=== PATIENT | male | born 1950 | race Caucasian/White ===

== ENCOUNTER 2018-05-20 17:36 | Inpatient (IN) ==
[2018-05-20 18:50] LABS: Basophils # 0.1 10*3/uL (0.0-0.2); Basophils % 0.7 % (0.0-0.8); Eosinophils % 0.1 % (0.00-10.9); Hematocrit 46.4 VOL% (42.0-52.0); Immature Granulocytes Absolute 0.74 #; Lymphocytes # 0.6 10*3/uL (1.4-4.0); Lymphocytes % 8.4 % (21.2-54.2); Mean Corpuscular HGB Conc 32.3 GM/DL (32-36); Mean Corpuscular Hemoglobin 29 PG (27-34); Mean Platelet Volume 9.7 FL (9.6-12.0); Monocytes # 0.6 10*3/uL (0.11-0.8); Monocytes % 8.5 % (1.7-12.7); Neutrophils # 5.3 10*3/uL (1.4-7.4); Neutrophils % 72.3 % (38.7-73.9); Platelet Count 256 T/CUMM (130-400); Red Cell Distribution Width 13.3 % (9.3-17.3); White Blood Count 7.4 T/CUMM (4-12)
[2018-05-20 19:04] LABS: Troponin I < 0.015 NG/ML (0.00-0.045)
[2018-05-20 19:38] LABS: Blood Urea Nitrogen 13 MG/DL (7-18); Lymphocytes 6 % (20-55); Platelet Estimate Normal; Segmented Neutrophils 89 % (50-85); Total Cells Counted 100
[2018-05-20 19:39] LABS: Polychromasia Few
[2018-05-20 20:29] LABS: Alanine Aminotransferase 18 U/L (16-61); Albumin 3.4 G/DL (3.4-5.0); Alkaline Phosphatase 69 U/L (45-117); Aspartate Amino Transferase 24 U/L (0-37); Glucose 78 MG/DL (74-106); Osmolality,Calculated 277.4 MOS/KG (273-304); Potassium 3.9 MMOL/L (3.5-5.1); Sodium 140 MMOL/L (136-145); Total Protein 6.3 G/DL (6.4-8.3)
[2018-05-20 20:31] LABS: Calcium < 5.0 MG/DL (8.5-10.1)
[2018-05-21 05:54] LABS: Albumin 3.2 G/DL (3.4-5.0); Bilirubin,Total 1.8 MG/DL (0.2-1.0); Calcium 5.9 MG/DL (8.5-10.1); Osmolality,Calculated 281.1 MOS/KG (273-304); Potassium 3.4 MMOL/L (3.5-5.1); Total Protein 6.1 G/DL (6.4-8.3)
[2018-05-21 10:26] LABS: Apearance,Urine CLEAR (Clear); Bilirubin,Urine Negative (Negative); Blood, Urine Small mg/dL (Negative); Glucose,Urine (UA) Negative (Negative); Ketones,Urine 5 mg/dL (Negative); Nitrite,Urine Negative (Negative); Protein,Urine Negative; RBC,Urine <1 /HPF (0-4); Squamous Epithelial Cell,Urine Occasional /HPF (0-10); Urine Color Yellow (Yellow); Urine Specific Gravity 1.011 (1.001-1.035); Urine Urobilinogen < 2.0 EU/DL (0.2-1.0); WBC,Urine <1 /HPF (0-6)
[2018-05-21 16:47] LABS: Calcium 5.6 MG/DL (8.5-10.1)
[2018-05-22 06:43] LABS: Basophils % 0.8 % (0.0-0.8); Eosinophils # 0.1 10*3/uL (0.0-0.87); Hematocrit 44.7 VOL% (42.0-52.0); Hemoglobin 14.6 GM/DL (14.0-18.0); Immature Granulocytes % 10.2 %; Immature Granulocytes Absolute 0.53 #; Lymphocytes # 0.8 10*3/uL (1.4-4.0); Lymphocytes % 15.9 % (21.2-54.2); Mean Corpuscular HGB Conc 32.7 GM/DL (32-36); Mean Corpuscular Hemoglobin 30 PG (27-34); Mean Corpuscular Volume 90.5 FL (87-102); Mean Platelet Volume 9.7 FL (9.6-12.0); Monocytes # 0.7 10*3/uL (0.11-0.8); Monocytes % 12.8 % (1.7-12.7); Neutrophils # 3.1 10*3/uL (1.4-7.4); Neutrophils % 59.3 % (38.7-73.9); Platelet Count 218 T/CUMM (130-400); Red Blood Count 4.94 MC/CUMM (3.8-5.5); Red Cell Distribution Width 13.2 % (9.3-17.3); White Blood Count 5.2 T/CUMM (4-12)
[2018-05-22 07:07] LABS: Band Neutrophils 1 % (0-10); Eosinophils 3 % (0-10); Hypochromasia 1+; Lymphocytes 18 % (20-55); Ovalocytes Slight; Platelet Estimate Adequate; Segmented Neutrophils 66 % (50-85); Total Cells Counted 100
[2018-05-22 07:22] LABS: Calcium 6.3 MG/DL (8.5-10.1); Osmolality,Calculated 286.8 MOS/KG (273-304); Potassium 3.7 MMOL/L (3.5-5.1)
[2018-05-22 07:38] VITALS: BP 149/87
== END 2018-05-22 09:12 | disposition home or self-care (01) | DRG 641 ==
LOC: N.EDINP 17:36 → N.ED 17:36 → N.5E 22:00
PROVIDERS: ADMIT Internal Medicine; ATTEND Internal Medicine

== ENCOUNTER 2020-07-01 12:19 | Inpatient (IN) ==
[2020-07-01] MEDS ORDERED: ALBUTEROL/IPRATROPIUM 3 ML NEB RESP TX PRN (12:45)
[2020-07-01] MEDS: ALBUTEROL/IPRATROPIUM 3 ML NEB RESP TX SCH ×2 (13:45→19:53)
[2020-07-01] MEDS: CEFEPIME 1,000 MG in SODIUM CHLORIDE 0.9% 100 ML IV SCH ×2 (16:00→21:31)
[2020-07-01] MEDS: DOCUSATE SODIUM 100 MG/10 ML UDCUP PEG SCH (21:29)
[2020-07-01] MEDS: TACROLIMUS 0.5 MG CAPSULE PEG SCH (21:29)
[2020-07-01] MEDS: FERROUS SULFATE 300 MG/5 ML UDCUP PEG SCH (21:29)
[2020-07-01] MEDS: CALCIUM (CARBONATE) 600 MG TABLET PEG SCH (21:29)
[2020-07-01] MEDS: ATORVASTATIN 20 MG TABLET PEG SCH (21:30)
[2020-07-01] MEDS: ASCORBIC ACID 500 MG TABLET PEG SCH (21:30)
[2020-07-01] MEDS: busPIRone 5 MG TABLET PEG SCH (21:30)
[2020-07-02] MEDS: ALBUTEROL/IPRATROPIUM 3 ML NEB RESP TX SCH ×4 (02:33→19:10)
[2020-07-02] MEDS: CEFEPIME 1,000 MG in SODIUM CHLORIDE 0.9% 100 ML IV SCH ×4 (02:44→20:21)
[2020-07-02 05:43] LABS: Basophils % 0.2 % (0.0-0.8); Eosinophils # 0.1 10*3/uL (0.0-0.87); Eosinophils % 0.9 % (0.00-10.9); Hematocrit 34.9 VOL% (42.0-52.0); Hemoglobin 10.9 GM/DL (14.0-18.0); Immature Granulocytes % 0.4 %; Immature Granulocytes Absolute 0.04 #; Lymphocytes # 0.5 10*3/uL (1.4-4.0); Lymphocytes % 5.9 % (21.2-54.2); Mean Corpuscular HGB Conc 31.2 GM/DL (32-36); Mean Corpuscular Volume 85.7 FL (87-102); Mean Platelet Volume 9.6 FL (9.6-12.0); Monocytes % 11.6 % (1.7-12.7); Platelet Count 259 T/CUMM (130-400); Red Blood Count 4.07 MC/CUMM (3.8-5.5); Red Cell Distribution Width 15.3 % (9.3-17.3)
[2020-07-02 06:03] LABS: Calcium 8.3 MG/DL (8.5-10.1); Osmolality,Calculated 279.7 MOS/KG (273-304)
[2020-07-02] MEDS ORDERED: LANSOPRAZOLE ODT 30 MG TABLET PEG SCH (06:30)
[2020-07-02] MEDS ORDERED: PANTOPRAZOLE 40 MG TABLET PO SCH (09:00)
[2020-07-02] MEDS ORDERED: FUROSEMIDE 40 MG/4 ML VIAL IV ONE (09:00)
[2020-07-02] MEDS: ACETAMINOPHEN 325 MG/10.15 ML UDCUP PEG PRN (09:08)
[2020-07-02] MEDS: POTASSIUM CHLORIDE 20 MEQ/15 ML UDCUP PEG SCH (09:13)
[2020-07-02] MEDS: DOCUSATE SODIUM 100 MG/10 ML UDCUP PEG SCH ×2 (09:13→20:20)
[2020-07-02] MEDS: FERROUS SULFATE 300 MG/5 ML UDCUP PEG SCH ×2 (09:13→20:20)
[2020-07-02] MEDS: POTASSIUM CHLORIDE 20 MEQ/15 ML UDCUP PER TUBE PRN ×3 (09:13→16:56)
[2020-07-02] MEDS: SULFAMETHOX/TRIMETHOPRIM 200-40 MG/5 ML -20 ML UDCUP PEG SCH (09:13)
[2020-07-02] MEDS: prednisoLONE 15 MG/5 ML ORAL.SYR PEG SCH (09:14)
[2020-07-02] MEDS: LEFLUNOMIDE 10 MG TABLET PEG SCH (09:15)
[2020-07-02] MEDS: OMEPRAZOLE ODT 20 MG TABLET PEG SCH (09:15)
[2020-07-02] MEDS: TACROLIMUS 0.5 MG CAPSULE PEG SCH ×2 (09:15→20:20)
[2020-07-02] MEDS: CALCIUM (CARBONATE) 600 MG TABLET PEG SCH ×3 (09:16→20:20)
[2020-07-02] MEDS: CITALOPRAM 40 MG TABLET PEG SCH ×2 (09:16→10:37)
[2020-07-02] MEDS: busPIRone 5 MG TABLET PEG SCH ×3 (09:16→20:20)
[2020-07-02] MEDS: amLODIPine 2.5 MG TABLET PEG SCH (09:16)
[2020-07-02] MEDS: METOPROLOL SUCCINATE XL 25 MG TABLET PO SCH (09:16)
[2020-07-02] MEDS: ENOXAPARIN 40 MG/0.4 ML SYRINGE SUBCUT SCH (09:17)
[2020-07-02] MEDS: methylPREDNISolone SOD SUC 40 MG/1 ML VIAL IV SCH ×2 (09:17→20:20)
[2020-07-02] MEDS: ASCORBIC ACID 500 MG TABLET PEG SCH ×2 (09:17→20:20)
[2020-07-02] MEDS: AZITHROMYCIN INJ 500 MG in SODIUM CHLORIDE 0.9% 250 ML IV SCH (17:58)
[2020-07-02] MEDS: metroNIDAZOLE INJ 500 MG in PREMIX 1 EACH IV SCH ×2 (19:01→23:26)
[2020-07-02] MEDS: ATORVASTATIN 20 MG TABLET PEG SCH (20:20)
[2020-07-03] MEDS: ALBUTEROL/IPRATROPIUM 3 ML NEB RESP TX SCH ×4 (01:05→19:42)
[2020-07-03] MEDS: CEFEPIME 1,000 MG in SODIUM CHLORIDE 0.9% 100 ML IV SCH ×4 (02:34→22:15)
[2020-07-03] MEDS: metroNIDAZOLE INJ 500 MG in PREMIX 1 EACH IV SCH ×3 (05:21→18:13)
[2020-07-03] MEDS: OMEPRAZOLE ODT 20 MG TABLET PEG SCH (05:33)
[2020-07-03 06:09] LABS: Basophils % 0.1 % (0.0-0.8); Hematocrit 34.3 VOL% (42.0-52.0); Immature Granulocytes % 0.4 %; Immature Granulocytes Absolute 0.04 #; Lymphocytes # 0.3 10*3/uL (1.4-4.0); Lymphocytes % 2.2 % (21.2-54.2); Mean Corpuscular HGB Conc 32.1 GM/DL (32-36); Mean Corpuscular Volume 84.5 FL (87-102); Mean Platelet Volume 9.8 FL (9.6-12.0); Monocytes % 6.5 % (1.7-12.7); Neutrophils % 90.8 % (38.7-73.9); Platelet Count 283 T/CUMM (130-400); Red Blood Count 4.06 MC/CUMM (3.8-5.5); Red Cell Distribution Width 15.2 % (9.3-17.3); White Blood Count 11.3 T/CUMM (4-12)
[2020-07-03 06:25] LABS: Calcium 8.4 MG/DL (8.5-10.1); Osmolality,Calculated 284.8 MOS/KG (273-304)
[2020-07-03 08:02] LABS: Band Neutrophils 2 % (0-10); Lymphocytes 3 % (20-55); Metamyelocytes 1 %; Platelet Estimate Normal; Segmented Neutrophils 89 % (50-85); Total Cells Counted 100
[2020-07-03 08:03] LABS: Anisocytosis Slight; Microcytosis Slight
[2020-07-03] MEDS: ACETAMINOPHEN 325 MG/10.15 ML UDCUP PEG PRN ×2 (09:20→15:16)
[2020-07-03] MEDS: methylPREDNISolone SOD SUC 40 MG/1 ML VIAL IV SCH (09:21)
[2020-07-03] MEDS: ENOXAPARIN 40 MG/0.4 ML SYRINGE SUBCUT SCH (09:22)
[2020-07-03] MEDS: amLODIPine 2.5 MG TABLET PEG SCH (12:31)
[2020-07-03] MEDS: METOPROLOL SUCCINATE XL 25 MG TABLET PO SCH (12:31)
[2020-07-03 14:40] LABS: Amylase,Pleural Fluid 17 U/L; Glucose,Pleural Fluid 112 MG/DL; LDH,Pleural Fluid 315 U/L; Total Protein,Pleural Fluid 3.8 G/DL
[2020-07-03 14:51] LABS: Eosinophils,Pleural Fluid 1 %; Lymphocytes,Pleural Fluid 6 %; Monocytes,Pleural Fluid 20 %; Neutrophils,Pleural Fluid 73 %
[2020-07-03 14:52] LABS: RBC,Pleural Fluid 826 T/CUMM
[2020-07-03] MEDS: busPIRone 5 MG TABLET PEG SCH ×3 (15:10→22:15)
[2020-07-03] MEDS: CALCIUM (CARBONATE) 600 MG TABLET PEG SCH ×3 (15:11→22:16)
[2020-07-03] MEDS: ASCORBIC ACID 500 MG TABLET PEG SCH ×2 (15:15→22:15)
[2020-07-03] MEDS: TACROLIMUS 0.5 MG CAPSULE PEG SCH ×2 (15:15→22:15)
[2020-07-03] MEDS: LEFLUNOMIDE 10 MG TABLET PEG SCH (15:15)
[2020-07-03] MEDS: FERROUS SULFATE 300 MG/5 ML UDCUP PEG SCH ×2 (15:16→22:16)
[2020-07-03] MEDS: CITALOPRAM 40 MG TABLET PEG SCH (15:16)
[2020-07-03] MEDS: POTASSIUM CHLORIDE 20 MEQ/15 ML UDCUP PEG SCH (15:17)
[2020-07-03] MEDS: DOCUSATE SODIUM 100 MG/10 ML UDCUP PEG SCH ×2 (15:17→22:16)
[2020-07-03] MEDS: POTASSIUM CHLORIDE 20 MEQ/15 ML UDCUP PER TUBE PRN (15:17)
[2020-07-03] MEDS: SULFAMETHOX/TRIMETHOPRIM 200-40 MG/5 ML -20 ML UDCUP PEG SCH (15:18)
[2020-07-03] MEDS: prednisoLONE 15 MG/5 ML ORAL.SYR PEG SCH (15:18)
[2020-07-03 15:58] LABS: Alanine Aminotransferase 14 U/L (16-61); Albumin 2.1 G/DL (3.4-5.0); Alkaline Phosphatase 79 U/L (45-117); Aspartate Amino Transferase 17 U/L (0-37); Bilirubin,Total < 0.39 MG/DL (0.2-1.0); Blood Urea Nitrogen 30 MG/DL (7-18); Calcium 8.5 MG/DL (8.5-10.1); Estimated Glom Filtration Rate 104 ML/MIN; Glucose 128 MG/DL (74-106); Osmolality,Calculated 280.8 MOS/KG (273-304); Total Protein 6.3 G/DL (6.4-8.3)
[2020-07-03] MEDS: AZITHROMYCIN INJ 500 MG in SODIUM CHLORIDE 0.9% 250 ML IV SCH (17:02)
[2020-07-03] MEDS: ATORVASTATIN 20 MG TABLET PEG SCH (22:16)
[2020-07-03] MEDS: ONDANSETRON 4 MG/2 ML VIAL IV PRN (22:16)
[2020-07-04] MEDS: ALBUTEROL/IPRATROPIUM 3 ML NEB RESP TX SCH ×4 (00:35→19:23)
[2020-07-04] MEDS: metroNIDAZOLE INJ 500 MG in PREMIX 1 EACH IV SCH ×4 (01:04→17:20)
[2020-07-04] MEDS: CEFEPIME 1,000 MG in SODIUM CHLORIDE 0.9% 100 ML IV SCH ×4 (03:48→20:48)
[2020-07-04 05:24] LABS: Basophils % 0.1 % (0.0-0.8); Eosinophils % 0.1 % (0.00-10.9); Hematocrit 32.7 VOL% (42.0-52.0); Hemoglobin 10.2 GM/DL (14.0-18.0); Immature Granulocytes % 0.6 %; Immature Granulocytes Absolute 0.07 #; Lymphocytes # 0.4 10*3/uL (1.4-4.0); Lymphocytes % 3.4 % (21.2-54.2); Mean Corpuscular HGB Conc 31.2 GM/DL (32-36); Mean Corpuscular Volume 85.4 FL (87-102); Mean Platelet Volume 9.1 FL (9.6-12.0); Monocytes % 10.9 % (1.7-12.7); Neutrophils % 84.9 % (38.7-73.9); Platelet Count 260 T/CUMM (130-400); Red Blood Count 3.83 MC/CUMM (3.8-5.5); Red Cell Distribution Width 15.3 % (9.3-17.3); White Blood Count 12.1 T/CUMM (4-12)
[2020-07-04 05:38] LABS: Calcium 8.4 MG/DL (8.5-10.1); Osmolality,Calculated 281.5 MOS/KG (273-304)
[2020-07-04] MEDS: OMEPRAZOLE ODT 20 MG TABLET PEG SCH (06:02)
[2020-07-04 06:11] LABS: Band Neutrophils 2 % (0-10); Eosinophils 1 % (0-10); Lymphocytes 1 % (20-55); Nucleated Red Blood Cells 1 (0-5); Platelet Estimate Normal; Segmented Neutrophils 87 % (50-85); Total Cells Counted 100
[2020-07-04 06:12] LABS: Anisocytosis 2+; Burr Cells Few; Ovalocytes 1+; Poikilocytosis 1+
[2020-07-04] MEDS: CALCIUM (CARBONATE) 600 MG TABLET PEG SCH ×3 (09:46→20:47)
[2020-07-04] MEDS: FERROUS SULFATE 300 MG/5 ML UDCUP PEG SCH ×2 (09:46→20:46)
[2020-07-04] MEDS: prednisoLONE 15 MG/5 ML ORAL.SYR PEG SCH (09:46)
[2020-07-04] MEDS: busPIRone 5 MG TABLET PEG SCH ×3 (09:46→20:46)
[2020-07-04] MEDS: LEFLUNOMIDE 10 MG TABLET PEG SCH (09:46)
[2020-07-04] MEDS: DOCUSATE SODIUM 100 MG/10 ML UDCUP PEG SCH ×2 (09:46→20:48)
[2020-07-04] MEDS: POTASSIUM CHLORIDE 20 MEQ/15 ML UDCUP PEG SCH (09:46)
[2020-07-04] MEDS: ASCORBIC ACID 500 MG TABLET PEG SCH ×2 (09:47→20:48)
[2020-07-04] MEDS: amLODIPine 2.5 MG TABLET PEG SCH (09:47)
[2020-07-04] MEDS: TACROLIMUS 0.5 MG CAPSULE PEG SCH ×2 (09:47→20:46)
[2020-07-04] MEDS: SULFAMETHOX/TRIMETHOPRIM 200-40 MG/5 ML -20 ML UDCUP PEG SCH (09:47)
[2020-07-04] MEDS: METOPROLOL SUCCINATE XL 25 MG TABLET PO SCH (09:47)
[2020-07-04] MEDS: CITALOPRAM 40 MG TABLET PEG SCH (09:47)
[2020-07-04] MEDS: ENOXAPARIN 40 MG/0.4 ML SYRINGE SUBCUT SCH (09:48)
[2020-07-04] MEDS: ONDANSETRON 4 MG/2 ML VIAL IV PRN (10:04)
[2020-07-04] MEDS: AZITHROMYCIN INJ 500 MG in SODIUM CHLORIDE 0.9% 250 ML IV SCH (16:06)
[2020-07-04] MEDS: ATORVASTATIN 20 MG TABLET PEG SCH (20:47)
[2020-07-05] MEDS: ALBUTEROL/IPRATROPIUM 3 ML NEB RESP TX SCH ×4 (00:12→19:18)
[2020-07-05] MEDS: metroNIDAZOLE INJ 500 MG in PREMIX 1 EACH IV SCH ×4 (00:48→18:26)
[2020-07-05] MEDS: CEFEPIME 1,000 MG in SODIUM CHLORIDE 0.9% 100 ML IV SCH ×4 (04:53→21:20)
[2020-07-05] MEDS: OMEPRAZOLE ODT 20 MG TABLET PEG SCH (05:40)
[2020-07-05] MEDS: LEFLUNOMIDE 10 MG TABLET PEG SCH (09:55)
[2020-07-05] MEDS: busPIRone 5 MG TABLET PEG SCH ×3 (09:55→21:32)
[2020-07-05] MEDS: POTASSIUM CHLORIDE 20 MEQ/15 ML UDCUP PEG SCH (09:55)
[2020-07-05] MEDS: amLODIPine 2.5 MG TABLET PEG SCH (09:55)
[2020-07-05] MEDS: prednisoLONE 15 MG/5 ML ORAL.SYR PEG SCH (09:56)
[2020-07-05] MEDS: DOCUSATE SODIUM 100 MG/10 ML UDCUP PEG SCH ×2 (09:56→21:01)
[2020-07-05] MEDS: CALCIUM (CARBONATE) 600 MG TABLET PEG SCH ×3 (09:56→21:21)
[2020-07-05] MEDS: METOPROLOL SUCCINATE XL 25 MG TABLET PO SCH (09:57)
[2020-07-05] MEDS: TACROLIMUS 0.5 MG CAPSULE PEG SCH ×2 (09:57→21:16)
[2020-07-05] MEDS: CITALOPRAM 40 MG TABLET PEG SCH (09:57)
[2020-07-05] MEDS: FERROUS SULFATE 300 MG/5 ML UDCUP PEG SCH ×2 (09:57→21:16)
[2020-07-05] MEDS: SULFAMETHOX/TRIMETHOPRIM 200-40 MG/5 ML -20 ML UDCUP PEG SCH (09:58)
[2020-07-05] MEDS: ENOXAPARIN 40 MG/0.4 ML SYRINGE SUBCUT SCH (09:58)
[2020-07-05] MEDS: ASCORBIC ACID 500 MG TABLET PEG SCH ×2 (09:58→21:18)
[2020-07-05] MEDS: LOPERAMIDE 2 MG CAPSULE PO SCH (21:16)
[2020-07-05] MEDS: ATORVASTATIN 20 MG TABLET PEG SCH (21:19)
[2020-07-06] MEDS: metroNIDAZOLE INJ 500 MG in PREMIX 1 EACH IV SCH ×4 (01:23→18:15)
[2020-07-06] MEDS: ALBUTEROL/IPRATROPIUM 3 ML NEB RESP TX SCH ×4 (02:02→19:34)
[2020-07-06] MEDS: CEFEPIME 1,000 MG in SODIUM CHLORIDE 0.9% 100 ML IV SCH ×4 (03:16→21:40)
[2020-07-06 03:34] LABS: Basophils % 0.2 % (0.0-0.8); Eosinophils # 0.2 10*3/uL (0.0-0.87); Eosinophils % 1.6 % (0.00-10.9); Hematocrit 33.6 VOL% (42.0-52.0); Hemoglobin 10.4 GM/DL (14.0-18.0); Immature Granulocytes % 0.8 %; Immature Granulocytes Absolute 0.08 #; Lymphocytes # 0.6 10*3/uL (1.4-4.0); Lymphocytes % 5.2 % (21.2-54.2); Mean Platelet Volume 9.8 FL (9.6-12.0); Monocytes % 10.6 % (1.7-12.7); Neutrophils % 81.6 % (38.7-73.9); Platelet Count 269 T/CUMM (130-400); Red Cell Distribution Width 15.3 % (9.3-17.3); White Blood Count 10.6 T/CUMM (4-12)
[2020-07-06 04:07] LABS: Calcium 8.9 MG/DL (8.5-10.1); Osmolality,Calculated 279.1 MOS/KG (273-304)
[2020-07-06] MEDS: OMEPRAZOLE ODT 20 MG TABLET PEG SCH (06:12)
[2020-07-06] MEDS: FERROUS SULFATE 300 MG/5 ML UDCUP PEG SCH ×2 (08:36→21:41)
[2020-07-06] MEDS: POTASSIUM CHLORIDE 20 MEQ/15 ML UDCUP PEG SCH (08:36)
[2020-07-06] MEDS: SULFAMETHOX/TRIMETHOPRIM 200-40 MG/5 ML -20 ML UDCUP PEG SCH (08:37)
[2020-07-06] MEDS: CITALOPRAM 40 MG TABLET PEG SCH (08:37)
[2020-07-06] MEDS: prednisoLONE 15 MG/5 ML ORAL.SYR PEG SCH (08:37)
[2020-07-06] MEDS: LEFLUNOMIDE 10 MG TABLET PEG SCH (08:37)
[2020-07-06] MEDS: busPIRone 5 MG TABLET PEG SCH ×3 (08:38→21:41)
[2020-07-06] MEDS: amLODIPine 2.5 MG TABLET PEG SCH (08:38)
[2020-07-06] MEDS: TACROLIMUS 0.5 MG CAPSULE PEG SCH ×2 (08:38→21:41)
[2020-07-06] MEDS: METOPROLOL SUCCINATE XL 25 MG TABLET PO SCH (08:39)
[2020-07-06] MEDS: ENOXAPARIN 40 MG/0.4 ML SYRINGE SUBCUT SCH (08:39)
[2020-07-06] MEDS: CALCIUM (CARBONATE) 600 MG TABLET PEG SCH ×3 (08:39→21:41)
[2020-07-06] MEDS: ASCORBIC ACID 500 MG TABLET PEG SCH ×2 (08:39→21:42)
[2020-07-06] MEDS: LOPERAMIDE 2 MG CAPSULE PO SCH (08:39)
[2020-07-06] MEDS: DOCUSATE SODIUM 100 MG/10 ML UDCUP PEG SCH ×2 (08:39→21:42)
[2020-07-06] MEDS: ATORVASTATIN 20 MG TABLET PEG SCH (21:42)
[2020-07-07] MEDS: metroNIDAZOLE INJ 500 MG in PREMIX 1 EACH IV SCH ×4 (00:55→17:00)
[2020-07-07] MEDS: ALBUTEROL/IPRATROPIUM 3 ML NEB RESP TX SCH ×4 (02:19→19:13)
[2020-07-07] MEDS: CEFEPIME 1,000 MG in SODIUM CHLORIDE 0.9% 100 ML IV SCH ×4 (03:31→22:49)
[2020-07-07 03:47] LABS: Basophils % 0.2 % (0.0-0.8); Eosinophils # 0.2 10*3/uL (0.0-0.87); Eosinophils % 1.5 % (0.00-10.9); Hematocrit 33.1 VOL% (42.0-52.0); Hemoglobin 10.3 GM/DL (14.0-18.0); Lymphocytes # 0.5 10*3/uL (1.4-4.0); Lymphocytes % 4.8 % (21.2-54.2); Mean Corpuscular HGB Conc 31.1 GM/DL (32-36); Mean Corpuscular Volume 84.9 FL (87-102); Mean Platelet Volume 9.5 FL (9.6-12.0); Monocytes % 10.3 % (1.7-12.7); Neutrophils % 82.2 % (38.7-73.9); Platelet Count 260 T/CUMM (130-400); Red Cell Distribution Width 15.6 % (9.3-17.3); White Blood Count 10.4 T/CUMM (4-12)
[2020-07-07 04:10] LABS: Osmolality,Calculated 272.2 MOS/KG (273-304)
[2020-07-07 04:24] LABS: Eosinophils 1 % (0-10); Hypochromasia 1+; Lymphocytes 7 % (20-55); Microcytosis Slight; Ovalocytes Slight; Platelet Estimate Adequate; Segmented Neutrophils 85 % (50-85); Total Cells Counted 100
[2020-07-07] MEDS: OMEPRAZOLE ODT 20 MG TABLET PEG SCH (06:00)
[2020-07-07] MEDS: FERROUS SULFATE 300 MG/5 ML UDCUP PEG SCH ×2 (08:56→21:21)
[2020-07-07] MEDS: DOCUSATE SODIUM 100 MG/10 ML UDCUP PEG SCH ×2 (08:56→21:21)
[2020-07-07] MEDS: amLODIPine 2.5 MG TABLET PEG SCH (08:57)
[2020-07-07] MEDS: CALCIUM (CARBONATE) 600 MG TABLET PEG SCH ×3 (08:57→21:20)
[2020-07-07] MEDS: LEFLUNOMIDE 10 MG TABLET PEG SCH (08:57)
[2020-07-07] MEDS: busPIRone 5 MG TABLET PEG SCH ×3 (08:57→21:21)
[2020-07-07] MEDS: METOPROLOL SUCCINATE XL 25 MG TABLET PO SCH (08:57)
[2020-07-07] MEDS: CITALOPRAM 40 MG TABLET PEG SCH (08:57)
[2020-07-07] MEDS: prednisoLONE 15 MG/5 ML ORAL.SYR PEG SCH (08:58)
[2020-07-07] MEDS: TACROLIMUS 0.5 MG CAPSULE PEG SCH ×2 (08:58→21:20)
[2020-07-07] MEDS: ASCORBIC ACID 500 MG TABLET PEG SCH ×2 (08:58→21:21)
[2020-07-07] MEDS: POTASSIUM CHLORIDE 20 MEQ/15 ML UDCUP PEG SCH (08:58)
[2020-07-07] MEDS: ENOXAPARIN 40 MG/0.4 ML SYRINGE SUBCUT SCH (08:58)
[2020-07-07] MEDS: SULFAMETHOX/TRIMETHOPRIM 200-40 MG/5 ML -20 ML UDCUP PEG SCH (08:59)
[2020-07-07] MEDS: LOPERAMIDE 2 MG CAPSULE PO SCH (08:59)
[2020-07-07 09:06] LABS: CEA, Pleural Fluid 4.4 ng/mL
[2020-07-07] MEDS: ATORVASTATIN 20 MG TABLET PEG SCH (21:21)
[2020-07-08] MEDS: ALBUTEROL/IPRATROPIUM 3 ML NEB RESP TX SCH ×4 (00:16→19:15)
[2020-07-08] MEDS: metroNIDAZOLE INJ 500 MG in PREMIX 1 EACH IV SCH ×4 (01:20→18:24)
[2020-07-08 03:37] LABS: Basophils % 0.1 % (0.0-0.8); Eosinophils # 0.2 10*3/uL (0.0-0.87); Eosinophils % 1.8 % (0.00-10.9); Hematocrit 32.7 VOL% (42.0-52.0); Hemoglobin 10.4 GM/DL (14.0-18.0); Immature Granulocytes % 0.8 %; Immature Granulocytes Absolute 0.08 #; Lymphocytes # 0.3 10*3/uL (1.4-4.0); Lymphocytes % 3.2 % (21.2-54.2); Mean Corpuscular HGB Conc 31.8 GM/DL (32-36); Mean Corpuscular Volume 83.6 FL (87-102); Mean Platelet Volume 9.5 FL (9.6-12.0); Monocytes % 11.4 % (1.7-12.7); Neutrophils % 82.7 % (38.7-73.9); Platelet Count 263 T/CUMM (130-400); Red Blood Count 3.91 MC/CUMM (3.8-5.5); Red Cell Distribution Width 15.7 % (9.3-17.3); White Blood Count 10.6 T/CUMM (4-12)
[2020-07-08] MEDS: CEFEPIME 1,000 MG in SODIUM CHLORIDE 0.9% 100 ML IV SCH ×4 (03:48→20:33)
[2020-07-08 04:02] LABS: Calcium 9.2 MG/DL (8.5-10.1); Osmolality,Calculated 273.1 MOS/KG (273-304)
[2020-07-08 04:09] LABS: Eosinophils 4 % (0-10); Lymphocytes 2 % (20-55); Platelet Estimate Normal; Segmented Neutrophils 86 % (50-85); Total Cells Counted 100
[2020-07-08 04:10] LABS: Hypochromasia Slight; Microcytosis 1+; Ovalocytes 1+
[2020-07-08 04:11] LABS: Polychromasia Slight
[2020-07-08] MEDS: OMEPRAZOLE ODT 20 MG TABLET PEG SCH (05:54)
[2020-07-08] MEDS: LEFLUNOMIDE 10 MG TABLET PEG SCH (10:07)
[2020-07-08] MEDS: ASCORBIC ACID 500 MG TABLET PEG SCH ×2 (10:07→20:32)
[2020-07-08] MEDS: TACROLIMUS 0.5 MG CAPSULE PEG SCH ×2 (10:07→20:31)
[2020-07-08] MEDS: amLODIPine 2.5 MG TABLET PEG SCH (10:07)
[2020-07-08] MEDS: METOPROLOL SUCCINATE XL 25 MG TABLET PO SCH (10:08)
[2020-07-08] MEDS: busPIRone 5 MG TABLET PEG SCH ×3 (10:08→20:32)
[2020-07-08] MEDS: CALCIUM (CARBONATE) 600 MG TABLET PEG SCH ×3 (10:08→20:32)
[2020-07-08] MEDS: POTASSIUM CHLORIDE 20 MEQ/15 ML UDCUP PEG SCH (10:08)
[2020-07-08] MEDS: FERROUS SULFATE 300 MG/5 ML UDCUP PEG SCH ×2 (10:09→20:31)
[2020-07-08] MEDS: CITALOPRAM 40 MG TABLET PEG SCH (10:09)
[2020-07-08] MEDS: DOCUSATE SODIUM 100 MG/10 ML UDCUP PEG SCH ×2 (10:09→20:31)
[2020-07-08] MEDS: prednisoLONE 15 MG/5 ML ORAL.SYR PEG SCH (10:09)
[2020-07-08] MEDS: SULFAMETHOX/TRIMETHOPRIM 200-40 MG/5 ML -20 ML UDCUP PEG SCH (10:09)
[2020-07-08] MEDS: ENOXAPARIN 40 MG/0.4 ML SYRINGE SUBCUT SCH (10:10)
[2020-07-08] MEDS: LOPERAMIDE 2 MG CAPSULE PO SCH (10:11)
[2020-07-08] MEDS: ATORVASTATIN 20 MG TABLET PEG SCH (20:32)
[2020-07-09] MEDS: ALBUTEROL/IPRATROPIUM 3 ML NEB RESP TX SCH ×4 (00:40→19:32)
[2020-07-09] MEDS: metroNIDAZOLE INJ 500 MG in PREMIX 1 EACH IV SCH ×4 (01:08→17:00)
[2020-07-09] MEDS: OMEPRAZOLE ODT 20 MG TABLET PEG SCH (05:42)
[2020-07-09] MEDS: LEFLUNOMIDE 10 MG TABLET PEG SCH (08:50)
[2020-07-09] MEDS: SULFAMETHOX/TRIMETHOPRIM 200-40 MG/5 ML -20 ML UDCUP PEG SCH (08:50)
[2020-07-09] MEDS: amLODIPine 2.5 MG TABLET PEG SCH (08:50)
[2020-07-09] MEDS: POTASSIUM CHLORIDE 20 MEQ/15 ML UDCUP PEG SCH (08:51)
[2020-07-09] MEDS: ASCORBIC ACID 500 MG TABLET PEG SCH ×2 (08:51→20:36)
[2020-07-09] MEDS: CITALOPRAM 40 MG TABLET PEG SCH (08:51)
[2020-07-09] MEDS: METOPROLOL SUCCINATE XL 25 MG TABLET PO SCH (08:51)
[2020-07-09] MEDS: DOCUSATE SODIUM 100 MG/10 ML UDCUP PEG SCH ×2 (08:51→20:34)
[2020-07-09] MEDS: prednisoLONE 15 MG/5 ML ORAL.SYR PEG SCH (08:51)
[2020-07-09] MEDS: CALCIUM (CARBONATE) 600 MG TABLET PEG SCH ×3 (08:51→20:35)
[2020-07-09] MEDS: busPIRone 5 MG TABLET PEG SCH ×3 (08:51→20:35)
[2020-07-09] MEDS: FERROUS SULFATE 300 MG/5 ML UDCUP PEG SCH ×2 (08:51→20:34)
[2020-07-09] MEDS: TACROLIMUS 0.5 MG CAPSULE PEG SCH ×2 (08:52→20:35)
[2020-07-09] MEDS: LOPERAMIDE 2 MG CAPSULE PO SCH (08:53)
[2020-07-09] MEDS: ENOXAPARIN 40 MG/0.4 ML SYRINGE SUBCUT SCH (08:53)
[2020-07-09] MEDS: ACETAMINOPHEN 325 MG/10.15 ML UDCUP PEG PRN (11:31)
[2020-07-09] MEDS: fentaNYL 25 MCG/HR PATCH TRANSDERM SCH (11:31)
[2020-07-09] MEDS: ATORVASTATIN 20 MG TABLET PEG SCH (20:35)
[2020-07-10] MEDS: metroNIDAZOLE INJ 500 MG in PREMIX 1 EACH IV SCH (00:39)
[2020-07-10] MEDS: ALBUTEROL/IPRATROPIUM 3 ML NEB RESP TX SCH ×4 (01:35→19:25)
[2020-07-10] MEDS: OMEPRAZOLE ODT 20 MG TABLET PEG SCH (06:01)
[2020-07-10] MEDS: LOPERAMIDE 2 MG CAPSULE PO SCH (09:10)
[2020-07-10] MEDS: CALCIUM (CARBONATE) 600 MG TABLET PEG SCH ×3 (09:11→20:32)
[2020-07-10] MEDS: TACROLIMUS 0.5 MG CAPSULE PEG SCH ×2 (09:11→20:33)
[2020-07-10] MEDS: DOCUSATE SODIUM 100 MG/10 ML UDCUP PEG SCH ×2 (09:11→20:32)
[2020-07-10] MEDS: CITALOPRAM 40 MG TABLET PEG SCH (09:11)
[2020-07-10] MEDS: FERROUS SULFATE 300 MG/5 ML UDCUP PEG SCH ×2 (09:11→20:32)
[2020-07-10] MEDS: ASCORBIC ACID 500 MG TABLET PEG SCH ×2 (09:11→20:33)
[2020-07-10] MEDS: METOPROLOL SUCCINATE XL 25 MG TABLET PO SCH (09:11)
[2020-07-10] MEDS: LEFLUNOMIDE 10 MG TABLET PEG SCH (09:12)
[2020-07-10] MEDS: amLODIPine 2.5 MG TABLET PEG SCH (09:12)
[2020-07-10] MEDS: busPIRone 5 MG TABLET PEG SCH ×2 (09:13→14:49)
[2020-07-10] MEDS: prednisoLONE 15 MG/5 ML ORAL.SYR PEG SCH (09:14)
[2020-07-10] MEDS: ENOXAPARIN 40 MG/0.4 ML SYRINGE SUBCUT SCH (09:14)
[2020-07-10] MEDS: POTASSIUM CHLORIDE 20 MEQ/15 ML UDCUP PEG SCH (09:15)
[2020-07-10] MEDS: busPIRone 10 MG TABLET PEG SCH (20:30)
[2020-07-10] MEDS: ATORVASTATIN 20 MG TABLET PEG SCH (20:33)
[2020-07-10] MEDS: ALPRAZolam 0.5 MG TABLET PO PRN (20:44)
[2020-07-11] MEDS: ALBUTEROL/IPRATROPIUM 3 ML NEB RESP TX SCH ×4 (01:06→19:28)
[2020-07-11] MEDS: ALPRAZolam 0.5 MG TABLET PO PRN (03:37)
[2020-07-11 05:19] LABS: Basophils % 0.3 % (0.0-0.8); Eosinophils # 0.2 10*3/uL (0.0-0.87); Eosinophils % 1.6 % (0.00-10.9); Hematocrit 30.2 VOL% (42.0-52.0); Hemoglobin 9.4 GM/DL (14.0-18.0); Immature Granulocytes % 0.6 %; Immature Granulocytes Absolute 0.06 #; Lymphocytes # 0.4 10*3/uL (1.4-4.0); Lymphocytes % 4.2 % (21.2-54.2); Mean Corpuscular HGB Conc 31.1 GM/DL (32-36); Mean Corpuscular Volume 84.1 FL (87-102); Mean Platelet Volume 9.6 FL (9.6-12.0); Monocytes % 13.6 % (1.7-12.7); Neutrophils % 79.7 % (38.7-73.9); Platelet Count 253 T/CUMM (130-400); Red Blood Count 3.59 MC/CUMM (3.8-5.5); Red Cell Distribution Width 15.7 % (9.3-17.3); White Blood Count 9.6 T/CUMM (4-12)
[2020-07-11] MEDS: OMEPRAZOLE ODT 20 MG TABLET PEG SCH (05:40)
[2020-07-11 05:55] LABS: Calcium 9.3 MG/DL (8.5-10.1); Osmolality,Calculated 266.5 MOS/KG (273-304)
[2020-07-11 05:58] LABS: Eosinophils 2 % (0-10); Lymphocytes 5 % (20-55); Nucleated Red Blood Cells 1 (0-5); Platelet Estimate Normal; Segmented Neutrophils 81 % (50-85); Total Cells Counted 100
[2020-07-11 05:59] LABS: Hypochromasia Slight; Microcytosis Slight
[2020-07-11 07:34] LABS: ABG Base Excess 2.4 MMOL/L (-2.5-2.5); ABG Oxygen Saturation 98.7 % (95-100); ABG PCO2 41.7 MM HG (35-48); ABG PH 7.429 (7.35-7.45); ABG TCO2 28.3 MMOL/L (23-27); Pt O2 Delivery Device Simple Mask
[2020-07-11] MEDS: fentaNYL 25 MCG/HR PATCH TRANSDERM SCH (07:55)
[2020-07-11] MEDS ORDERED: ETOMIDATE 20 MG/10 ML VIAL IV ONE (08:03)
[2020-07-11] MEDS ORDERED: SUCCINYLCHOLINE 200 MG/10 ML VIAL ONE (08:04)
[2020-07-11 08:08] LABS: Calcium 9.4 MG/DL (8.5-10.1); Osmolality,Calculated 270.2 MOS/KG (273-304)
[2020-07-11] MEDS ORDERED: DIGOXIN 0.5 MG/2 ML AMP IV ONE (08:24)
[2020-07-11] MEDS ORDERED: DIGOXIN 0.5 MG/2 ML AMP ONE (08:25)
[2020-07-11] MEDS ORDERED: MIDAZOLAM 2 MG/2 ML VIAL IV ONE (08:28)
[2020-07-11] MEDS ORDERED: MIDAZOLAM 10 MG/2 ML VIAL ONE (08:29)
[2020-07-11] MEDS ORDERED: AMIODARONE INJ 150 MG in DEXTROSE 5% 100 ML IV ONE (08:51)
[2020-07-11] MEDS: MIDAZOLAM 100 MG in SODIUM CHLORIDE 0.9% 80 ML IV PRN (08:59)
[2020-07-11] MEDS ORDERED: AMIODARONE INJ 450 MG in DEXTROSE 5% 241 ML IV SCH (09:00)
[2020-07-11] MEDS ORDERED: SODIUM CHLORIDE 0.9% 1,000 ML IV ONE (09:03)
[2020-07-11] MEDS: AMIODARONE INJ 450 MG in DEXTROSE 5% 241 ML IV SCH ×3 (09:12→19:15)
[2020-07-11] MEDS: fentaNYL INJ 1,250 MCG in SODIUM CHLORIDE 0.9% 225 ML IV PRN (09:18)
[2020-07-11] MEDS ORDERED: MAGNESIUM SULF RIDER 2 GM in PREMIX 1 EACH IV ONE (09:34)
[2020-07-11 09:57] LABS: ABG Base Excess -0.2 MMOL/L (-2.5-2.5); ABG Oxygen Saturation 99.2 % (95-100); ABG PCO2 37.3 MM HG (35-48); ABG PH 7.427 (7.35-7.45); ABG PO2 305.6 MM HG (80-95); ABG TCO2 25.2 MMOL/L (23-27); Allen Test Positive; Pt O2 Delivery Device Ventilator
[2020-07-11] MEDS ORDERED: NOREPINEPHRINE 8 MG in SODIUM CHLORIDE 0.9% 242 ML IV PRN (10:21)
[2020-07-11] MEDS: SODIUM CHLORIDE 0.9% 1,000 ML IV SCH ×2 (10:42→20:33)
[2020-07-11] MEDS: ENOXAPARIN 40 MG/0.4 ML SYRINGE SUBCUT SCH (10:52)
[2020-07-11] MEDS: busPIRone 10 MG TABLET PEG SCH ×3 (10:53→20:23)
[2020-07-11] MEDS: CITALOPRAM 40 MG TABLET PEG SCH (10:53)
[2020-07-11] MEDS: METOPROLOL SUCCINATE XL 25 MG TABLET PO SCH (10:54)
[2020-07-11] MEDS: ASCORBIC ACID 500 MG TABLET PEG SCH ×2 (10:54→20:23)
[2020-07-11] MEDS: amLODIPine 2.5 MG TABLET PEG SCH (10:55)
[2020-07-11] MEDS: MEROPENEM 500 MG in SODIUM CHLORIDE 0.9% 100 ML IV SCH ×3 (10:56→22:20)
[2020-07-11] MEDS: FERROUS SULFATE 300 MG/5 ML UDCUP PEG SCH ×2 (11:08→20:22)
[2020-07-11] MEDS: LEFLUNOMIDE 10 MG TABLET PEG SCH (11:11)
[2020-07-11] MEDS: prednisoLONE 15 MG/5 ML ORAL.SYR PEG SCH (11:14)
[2020-07-11] MEDS: TACROLIMUS 0.5 MG CAPSULE PEG SCH ×2 (11:16→20:23)
[2020-07-11] MEDS: CALCIUM (CARBONATE) 600 MG TABLET PEG SCH ×3 (11:17→20:23)
[2020-07-11] MEDS ORDERED: DOCUSATE SODIUM 100 MG/10 ML UDCUP PEG PRN (11:20)
[2020-07-11] MEDS: DOCUSATE SODIUM 100 MG/10 ML UDCUP PEG SCH (11:20)
[2020-07-11] MEDS: LOPERAMIDE 2 MG CAPSULE PO SCH (11:37)
[2020-07-11] MEDS: POTASSIUM CHLORIDE 20 MEQ/15 ML UDCUP PEG SCH (16:13)
[2020-07-11] MEDS ORDERED: SODIUM PHOSPHATE INJ 30 MMOL in SODIUM CHLORIDE 0.9% 250 ML IV ONE (17:00)
[2020-07-11] MEDS: ATORVASTATIN 20 MG TABLET PEG SCH (20:23)
[2020-07-12] MEDS: ALBUTEROL/IPRATROPIUM 3 ML NEB RESP TX SCH ×4 (02:04→19:30)
[2020-07-12 03:21] LABS: ABG Base Excess 1.1 MMOL/L (-2.5-2.5); ABG HCO3 25.1 MMOL/L (20-26); ABG Oxygen Saturation 98.6 % (95-100); ABG PCO2 37.6 MM HG (35-48); ABG PH 7.443 (7.35-7.45); ABG PO2 145.3 MM HG (80-95); ABG TCO2 26.3 MMOL/L (23-27); Allen Test Positive; Pt O2 Delivery Device Ventilator
[2020-07-12 03:58] LABS: Basophils % 0.2 % (0.0-0.8); Eosinophils # 0.1 10*3/uL (0.0-0.87); Eosinophils % 1.1 % (0.00-10.9); Hematocrit 28.9 VOL% (42.0-52.0); Hemoglobin 8.9 GM/DL (14.0-18.0); Immature Granulocytes % 0.9 %; Immature Granulocytes Absolute 0.08 #; Lymphocytes # 0.4 10*3/uL (1.4-4.0); Lymphocytes % 4.2 % (21.2-54.2); Mean Corpuscular HGB Conc 30.8 GM/DL (32-36); Mean Platelet Volume 9.6 FL (9.6-12.0); Monocytes % 10.8 % (1.7-12.7); Neutrophils % 82.8 % (38.7-73.9); Platelet Count 243 T/CUMM (130-400); Red Blood Count 3.36 MC/CUMM (3.8-5.5); White Blood Count 8.5 T/CUMM (4-12)
[2020-07-12 04:15] LABS: Calcium 8.4 MG/DL (8.5-10.1); Osmolality,Calculated 278.7 MOS/KG (273-304)
[2020-07-12] MEDS ORDERED: MAGNESIUM SULF RIDER 4 GM in PREMIX 1 EACH IV PRN (04:22)
[2020-07-12 04:28] LABS: Band Neutrophils 1 % (0-10); Eosinophils 1 % (0-10); Lymphocytes 5 % (20-55); Segmented Neutrophils 85 % (50-85); Total Cells Counted 100
[2020-07-12 04:32] LABS: Ovalocytes 3+
[2020-07-12 04:33] LABS: Platelet Estimate Normal; Schistocytes Few
[2020-07-12 04:34] LABS: Hypochromasia 1+; Microcytosis 1+
[2020-07-12] MEDS: MEROPENEM 500 MG in SODIUM CHLORIDE 0.9% 100 ML IV SCH ×4 (04:45→21:03)
[2020-07-12] MEDS: fentaNYL INJ 1,250 MCG in SODIUM CHLORIDE 0.9% 225 ML IV PRN (05:47)
[2020-07-12] MEDS: OMEPRAZOLE ODT 20 MG TABLET PEG SCH (05:48)
[2020-07-12] MEDS: amLODIPine 2.5 MG TABLET PEG SCH (08:43)
[2020-07-12] MEDS: CITALOPRAM 40 MG TABLET PEG SCH (08:43)
[2020-07-12] MEDS: busPIRone 10 MG TABLET PEG SCH ×3 (08:43→21:10)
[2020-07-12] MEDS: methylPREDNISolone SOD SUC 40 MG/1 ML VIAL IV SCH ×2 (08:44→17:29)
[2020-07-12] MEDS: METOPROLOL TARTRATE 25 MG TABLET PER TUBE SCH ×2 (08:44→21:12)
[2020-07-12] MEDS: ASCORBIC ACID 500 MG TABLET PEG SCH ×2 (08:44→21:04)
[2020-07-12] MEDS: ENOXAPARIN 40 MG/0.4 ML SYRINGE SUBCUT SCH (08:45)
[2020-07-12] MEDS: POTASSIUM CHLORIDE 20 MEQ/15 ML UDCUP PEG SCH (08:45)
[2020-07-12] MEDS: FERROUS SULFATE 300 MG/5 ML UDCUP PEG SCH ×2 (08:46→21:03)
[2020-07-12] MEDS: LEFLUNOMIDE 10 MG TABLET PEG SCH (08:46)
[2020-07-12] MEDS: TACROLIMUS 0.5 MG CAPSULE PEG SCH ×2 (08:46→21:02)
[2020-07-12] MEDS: CALCIUM (CARBONATE) 600 MG TABLET PEG SCH ×3 (08:47→21:03)
[2020-07-12] MEDS: LOPERAMIDE 2 MG CAPSULE PO SCH (08:47)
[2020-07-12] MEDS: prednisoLONE 15 MG/5 ML ORAL.SYR PEG SCH (08:47)
[2020-07-12] MEDS ORDERED: AMIODARONE 200 MG TABLET PER TUBE SCH (09:00)
[2020-07-12] MEDS: SODIUM CHLORIDE 0.9% 1,000 ML IV SCH ×3 (09:06→20:23)
[2020-07-12] MEDS: AMIODARONE INJ 450 MG in DEXTROSE 5% 241 ML IV SCH (09:09)
[2020-07-12 11:21] LABS: Adenosine Deaminase Pleural Fl < 1.6 U/L (0.0 - 9.4); Source PLEURAL FLUID
[2020-07-12] MEDS: ATORVASTATIN 20 MG TABLET PEG SCH (21:10)
[2020-07-13] MEDS: ALBUTEROL/IPRATROPIUM 3 ML NEB RESP TX SCH ×4 (01:15→19:26)
[2020-07-13] MEDS: AMIODARONE INJ 450 MG in DEXTROSE 5% 241 ML IV SCH ×2 (02:28→14:57)
[2020-07-13] MEDS: methylPREDNISolone SOD SUC 40 MG/1 ML VIAL IV SCH ×4 (02:29→23:52)
[2020-07-13] MEDS: MEROPENEM 500 MG in SODIUM CHLORIDE 0.9% 100 ML IV SCH ×4 (03:51→21:15)
[2020-07-13] MEDS: fentaNYL INJ 1,250 MCG in SODIUM CHLORIDE 0.9% 225 ML IV PRN ×2 (03:53→18:26)
[2020-07-13] MEDS: OMEPRAZOLE ODT 20 MG TABLET PEG SCH (06:24)
[2020-07-13] MEDS: SODIUM CHLORIDE 0.9% 1,000 ML IV SCH ×3 (07:30→18:49)
[2020-07-13] MEDS: FERROUS SULFATE 300 MG/5 ML UDCUP PEG SCH ×2 (08:55→21:16)
[2020-07-13] MEDS: LEFLUNOMIDE 10 MG TABLET PEG SCH (08:55)
[2020-07-13] MEDS: POTASSIUM CHLORIDE 20 MEQ/15 ML UDCUP PEG SCH (08:55)
[2020-07-13] MEDS: predniSONE 5 MG TABLET PEG SCH (08:55)
[2020-07-13] MEDS: CITALOPRAM 40 MG TABLET PEG SCH (08:55)
[2020-07-13] MEDS: LOPERAMIDE 2 MG CAPSULE PO SCH (08:56)
[2020-07-13] MEDS: METOPROLOL TARTRATE 25 MG TABLET PER TUBE SCH ×2 (08:56→21:16)
[2020-07-13] MEDS: ASCORBIC ACID 500 MG TABLET PEG SCH ×2 (08:56→21:16)
[2020-07-13] MEDS: AMIODARONE 200 MG TABLET PER TUBE SCH (08:56)
[2020-07-13] MEDS: CALCIUM (CARBONATE) 600 MG TABLET PEG SCH ×3 (08:56→21:16)
[2020-07-13] MEDS: amLODIPine 2.5 MG TABLET PEG SCH (08:56)
[2020-07-13] MEDS: TACROLIMUS 0.5 MG CAPSULE PEG SCH ×2 (08:56→21:25)
[2020-07-13] MEDS: busPIRone 10 MG TABLET PEG SCH ×3 (09:00→21:23)
[2020-07-13] MEDS: ENOXAPARIN 40 MG/0.4 ML SYRINGE SUBCUT SCH (09:01)
[2020-07-13] MEDS: MIDAZOLAM 100 MG in SODIUM CHLORIDE 0.9% 80 ML IV PRN (17:41)
[2020-07-13] MEDS: ATORVASTATIN 20 MG TABLET PEG SCH (21:23)
[2020-07-14] MEDS: ALBUTEROL/IPRATROPIUM 3 ML NEB RESP TX SCH ×4 (00:12→19:45)
[2020-07-14 04:26] LABS: ABG Base Excess 0.7 MMOL/L (-2.5-2.5); ABG HCO3 25.2 MMOL/L (20-26); ABG Oxygen Saturation 97.5 % (95-100); ABG PCO2 39.7 MM HG (35-48); ABG PO2 103.9 MM HG (80-95); ABG TCO2 26.4 MMOL/L (23-27); Allen Test Positive; Pt O2 Delivery Device Ventilator
[2020-07-14 04:52] LABS: Basophils % 0.1 % (0.0-0.8); Hematocrit 29.5 VOL% (42.0-52.0); Hemoglobin 9.1 GM/DL (14.0-18.0); Immature Granulocytes % 0.9 %; Immature Granulocytes Absolute 0.13 #; Lymphocytes # 0.3 10*3/uL (1.4-4.0); Lymphocytes % 1.8 % (21.2-54.2); Mean Corpuscular HGB Conc 30.8 GM/DL (32-36); Mean Corpuscular Volume 84.5 FL (87-102); Neutrophils % 91.2 % (38.7-73.9); Platelet Count 265 T/CUMM (130-400); Red Blood Count 3.49 MC/CUMM (3.8-5.5); Red Cell Distribution Width 15.9 % (9.3-17.3); White Blood Count 14.6 T/CUMM (4-12)
[2020-07-14] MEDS: MEROPENEM 500 MG in SODIUM CHLORIDE 0.9% 100 ML IV SCH ×4 (05:00→22:46)
[2020-07-14 05:14] LABS: Calcium 8.8 MG/DL (8.5-10.1); Osmolality,Calculated 288.3 MOS/KG (273-304)
[2020-07-14 05:16] LABS: Hypochromasia 1+; Lymphocytes 1 % (20-55); Microcytosis 1+; Ovalocytes Slight; Platelet Estimate Adequate; Segmented Neutrophils 92 % (50-85); Total Cells Counted 100
[2020-07-14] MEDS: OMEPRAZOLE ODT 20 MG TABLET PEG SCH (05:46)
[2020-07-14] MEDS: SODIUM CHLORIDE 0.9% 1,000 ML IV SCH ×3 (05:50→17:15)
[2020-07-14] MEDS: AMIODARONE INJ 450 MG in DEXTROSE 5% 241 ML IV SCH (05:51)
[2020-07-14] MEDS: methylPREDNISolone SOD SUC 40 MG/1 ML VIAL IV SCH ×2 (09:15→15:15)
[2020-07-14] MEDS: AMIODARONE 200 MG TABLET PER TUBE SCH (09:20)
[2020-07-14] MEDS: CALCIUM (CARBONATE) 600 MG TABLET PEG SCH ×3 (09:20→21:03)
[2020-07-14] MEDS: ASCORBIC ACID 500 MG TABLET PEG SCH ×2 (09:20→21:04)
[2020-07-14] MEDS: ALPRAZolam 0.5 MG TABLET PO PRN (09:20)
[2020-07-14] MEDS: TACROLIMUS 0.5 MG CAPSULE PEG SCH ×2 (09:20→21:03)
[2020-07-14] MEDS: CITALOPRAM 40 MG TABLET PEG SCH (09:20)
[2020-07-14] MEDS: METOPROLOL TARTRATE 25 MG TABLET PER TUBE SCH ×2 (09:20→21:03)
[2020-07-14] MEDS: busPIRone 10 MG TABLET PEG SCH ×3 (09:20→21:03)
[2020-07-14] MEDS: LOPERAMIDE 2 MG CAPSULE PO SCH (09:20)
[2020-07-14] MEDS: FERROUS SULFATE 300 MG/5 ML UDCUP PEG SCH ×2 (09:20→21:03)
[2020-07-14] MEDS: LEFLUNOMIDE 10 MG TABLET PEG SCH (09:20)
[2020-07-14] MEDS: amLODIPine 2.5 MG TABLET PEG SCH (09:20)
[2020-07-14] MEDS: fentaNYL INJ 1,250 MCG in SODIUM CHLORIDE 0.9% 225 ML IV PRN (09:20)
[2020-07-14] MEDS: predniSONE 5 MG TABLET PEG SCH (09:20)
[2020-07-14] MEDS: POTASSIUM CHLORIDE 20 MEQ/15 ML UDCUP PEG SCH (09:20)
[2020-07-14] MEDS: ENOXAPARIN 40 MG/0.4 ML SYRINGE SUBCUT SCH (09:30)
[2020-07-14] MEDS ORDERED: ENOXAPARIN 80 MG/0.8 ML SYRINGE SUBCUT SCH (13:00)
[2020-07-14] MEDS: ENOXAPARIN 80 MG/0.8 ML SYRINGE SUBCUT SCH (17:30)
[2020-07-14] MEDS: ATORVASTATIN 20 MG TABLET PEG SCH (21:03)
[2020-07-15] MEDS: methylPREDNISolone SOD SUC 40 MG/1 ML VIAL IV SCH ×3 (01:25→15:45)
[2020-07-15] MEDS: ALBUTEROL/IPRATROPIUM 3 ML NEB RESP TX SCH ×4 (01:39→19:51)
[2020-07-15] MEDS: fentaNYL INJ 1,250 MCG in SODIUM CHLORIDE 0.9% 225 ML IV PRN ×2 (01:55→14:40)
[2020-07-15 04:07] LABS: Allen Test Positive; Pt O2 Delivery Device Ventilator
[2020-07-15] MEDS: SODIUM CHLORIDE 0.9% 1,000 ML IV SCH (04:07)
[2020-07-15 04:16] LABS: ABG Base Excess -0.2 MMOL/L (-2.5-2.5); ABG HCO3 22.7 MMOL/L (20-26); ABG Oxygen Saturation 98.9 % (95-100); ABG PCO2 32.5 MM HG (35-48); ABG PH 7.462 (7.35-7.45); ABG PO2 139.4 MM HG (80-95); ABG TCO2 23.7 MMOL/L (23-27)
[2020-07-15] MEDS: MEROPENEM 500 MG in SODIUM CHLORIDE 0.9% 100 ML IV SCH ×4 (05:01→22:52)
[2020-07-15 05:35] LABS: Hematocrit 26.5 VOL% (42.0-52.0); Hemoglobin 8.2 GM/DL (14.0-18.0); Immature Granulocytes % 0.8 %; Immature Granulocytes Absolute 0.09 #; Lymphocytes # 0.3 10*3/uL (1.4-4.0); Lymphocytes % 2.5 % (21.2-54.2); Mean Corpuscular HGB Conc 30.9 GM/DL (32-36); Mean Corpuscular Volume 84.7 FL (87-102); Mean Platelet Volume 10.2 FL (9.6-12.0); Monocytes % 5.9 % (1.7-12.7); NRBC # 0.02 10*3/uL; Neutrophils % 90.8 % (38.7-73.9); Platelet Count 233 T/CUMM (130-400); Red Blood Count 3.13 MC/CUMM (3.8-5.5); Red Cell Distribution Width 15.9 % (9.3-17.3); White Blood Count 10.7 T/CUMM (4-12)
[2020-07-15] MEDS: OMEPRAZOLE ODT 20 MG TABLET PEG SCH (05:44)
[2020-07-15] MEDS: ENOXAPARIN 80 MG/0.8 ML SYRINGE SUBCUT SCH ×2 (05:44→17:30)
[2020-07-15 06:04] LABS: Lymphocytes 1 % (20-55); Segmented Neutrophils 95 % (50-85); Total Cells Counted 100
[2020-07-15 06:05] LABS: Calcium 8.5 MG/DL (8.5-10.1); Hypochromasia Slight; Microcytosis Slight; Ovalocytes Few; Platelet Estimate Normal
[2020-07-15] MEDS: MIDAZOLAM 100 MG in SODIUM CHLORIDE 0.9% 80 ML IV PRN (07:10)
[2020-07-15] MEDS ORDERED: FUROSEMIDE 40 MG/4 ML VIAL IV ONE ×2 (08:30→09:00)
[2020-07-15] MEDS: AMIODARONE 200 MG TABLET PER TUBE SCH (09:20)
[2020-07-15] MEDS: amLODIPine 2.5 MG TABLET PEG SCH (09:20)
[2020-07-15] MEDS: LOPERAMIDE 2 MG CAPSULE PO SCH (09:20)
[2020-07-15] MEDS: ALPRAZolam 0.5 MG TABLET PO PRN ×3 (09:20→20:22)
[2020-07-15] MEDS: LEFLUNOMIDE 10 MG TABLET PEG SCH (09:20)
[2020-07-15] MEDS: CITALOPRAM 40 MG TABLET PEG SCH (09:20)
[2020-07-15] MEDS: TACROLIMUS 0.5 MG CAPSULE PEG SCH ×2 (09:20→20:23)
[2020-07-15] MEDS: ASCORBIC ACID 500 MG TABLET PEG SCH ×2 (09:20→20:23)
[2020-07-15] MEDS: busPIRone 10 MG TABLET PEG SCH ×3 (09:20→20:22)
[2020-07-15] MEDS: CALCIUM (CARBONATE) 600 MG TABLET PEG SCH ×3 (09:20→20:23)
[2020-07-15] MEDS: POTASSIUM CHLORIDE 20 MEQ/15 ML UDCUP PEG SCH (09:20)
[2020-07-15] MEDS: METOPROLOL TARTRATE 25 MG TABLET PER TUBE SCH (09:20)
[2020-07-15] MEDS: FERROUS SULFATE 300 MG/5 ML UDCUP PEG SCH ×2 (09:20→20:22)
[2020-07-15] MEDS: predniSONE 5 MG TABLET PEG SCH (09:20)
[2020-07-15] MEDS: MAGNESIUM SULF RIDER 2 GM in PREMIX 1 EACH IV PRN (14:00)
[2020-07-15] MEDS: ATORVASTATIN 20 MG TABLET PEG SCH (20:22)
[2020-07-16] MEDS: methylPREDNISolone SOD SUC 40 MG/1 ML VIAL IV SCH ×3 (01:09→14:52)
[2020-07-16] MEDS: ALBUTEROL/IPRATROPIUM 3 ML NEB RESP TX SCH ×4 (01:09→19:10)
[2020-07-16] MEDS: fentaNYL INJ 1,250 MCG in SODIUM CHLORIDE 0.9% 225 ML IV PRN (03:10)
[2020-07-16 03:31] LABS: ABG HCO3 29.8 MMOL/L (20-26); ABG Oxygen Saturation 94.4 % (95-100); ABG PCO2 45.3 MM HG (35-48); ABG PH 7.442 (7.35-7.45); ABG PO2 76.6 MM HG (80-95); ABG TCO2 28.3 MMOL/L (23-27); Allen Test Positive; Pt O2 Delivery Device Ventilator
[2020-07-16] MEDS: MEROPENEM 500 MG in SODIUM CHLORIDE 0.9% 100 ML IV SCH ×4 (04:26→23:10)
[2020-07-16 05:01] LABS: Hemoglobin 8.4 GM/DL (14.0-18.0); Immature Granulocytes % 0.7 %; Immature Granulocytes Absolute 0.08 #; Lymphocytes # 0.2 10*3/uL (1.4-4.0); Lymphocytes % 2.1 % (21.2-54.2); Mean Corpuscular HGB Conc 31.1 GM/DL (32-36); Mean Corpuscular Volume 83.1 FL (87-102); Mean Platelet Volume 10.3 FL (9.6-12.0); Monocytes % 6.4 % (1.7-12.7); Neutrophils % 90.8 % (38.7-73.9); Platelet Count 247 T/CUMM (130-400); Red Blood Count 3.25 MC/CUMM (3.8-5.5); Red Cell Distribution Width 15.9 % (9.3-17.3)
[2020-07-16 05:08] LABS: Calcium 8.2 MG/DL (8.5-10.1); Osmolality,Calculated 295.7 MOS/KG (273-304)
[2020-07-16 05:27] LABS: Elliptocytes Few; Hypochromasia 1+; Lymphocytes 5 % (20-55); Microcytosis 1+; Platelet Estimate Adequate; Segmented Neutrophils 90 % (50-85); Total Cells Counted 100
[2020-07-16] MEDS: ENOXAPARIN 80 MG/0.8 ML SYRINGE SUBCUT SCH ×2 (05:34→18:48)
[2020-07-16] MEDS: POTASSIUM CHLORIDE RIDER 10 MEQ in PREMIX 1 EACH IV PRN ×2 (05:34→06:01)
[2020-07-16] MEDS: OMEPRAZOLE ODT 20 MG TABLET PEG SCH (05:34)
[2020-07-16] MEDS: MAGNESIUM SULF RIDER 2 GM in PREMIX 1 EACH IV PRN (05:34)
[2020-07-16] MEDS ORDERED: amLODIPine 5 MG TABLET PO SCH (09:00)
[2020-07-16] MEDS: AMIODARONE 200 MG TABLET PER TUBE SCH (10:00)
[2020-07-16] MEDS: busPIRone 10 MG TABLET PEG SCH ×3 (10:00→21:18)
[2020-07-16] MEDS: CALCIUM (CARBONATE) 600 MG TABLET PEG SCH (10:21)
[2020-07-16] MEDS: CITALOPRAM 40 MG TABLET PEG SCH (10:21)
[2020-07-16] MEDS: predniSONE 5 MG TABLET PEG SCH (10:22)
[2020-07-16] MEDS: TACROLIMUS 0.5 MG CAPSULE PEG SCH ×2 (10:23→21:19)
[2020-07-16] MEDS: LEFLUNOMIDE 10 MG TABLET PO SCH (10:24)
[2020-07-16] MEDS: POTASSIUM CHLORIDE 20 MEQ/15 ML UDCUP PEG SCH (10:25)
[2020-07-16] MEDS: FERROUS SULFATE 300 MG/5 ML UDCUP PEG SCH ×2 (10:25→21:19)
[2020-07-16] MEDS: LOPERAMIDE 2 MG CAPSULE PO SCH (10:25)
[2020-07-16] MEDS: ASCORBIC ACID 500 MG TABLET PEG SCH ×2 (10:29→21:18)
[2020-07-16] MEDS ORDERED: BISACODYL 5 MG TABLET PO ONE (10:31)
[2020-07-16] MEDS ORDERED: POLYETHYLENE GLYCOL POWDER 255 GM BOTTLE PO ONE (10:31)
[2020-07-16] MEDS: DEXMEDETOMIDINE 200 MCG in SODIUM CHLORIDE 0.9% 48 ML IV PRN ×2 (11:32→23:19)
[2020-07-16] MEDS: METOCLOPRAMIDE 10 MG/2 ML VIAL IV SCH ×3 (11:53→23:58)
[2020-07-16] MEDS: BISACODYL 5 MG TABLET PO SCH (12:01)
[2020-07-16] MEDS ORDERED: POTASSIUM CHLORIDE 20 MEQ/15 ML UDCUP PO ONE (14:24)
[2020-07-16] MEDS: FUROSEMIDE 40 MG/4 ML VIAL IV SCH (14:55)
[2020-07-16] MEDS: amLODIPine 5 MG TABLET PO SCH (21:19)
[2020-07-16] MEDS: ATORVASTATIN 20 MG TABLET PEG SCH (21:19)
[2020-07-16] MEDS: POTASSIUM CHLORIDE 20 MEQ/15 ML UDCUP PER TUBE PRN ×2 (22:33→23:58)
[2020-07-16] MEDS: ALPRAZolam 0.5 MG TABLET PO PRN (22:40)
[2020-07-16] MEDS: HYDROmorphone 2 MG/1 ML VIAL IV PRN (23:10)
[2020-07-17] MEDS: ALBUTEROL/IPRATROPIUM 3 ML NEB RESP TX SCH ×4 (01:08→19:32)
[2020-07-17] MEDS: POTASSIUM CHLORIDE 20 MEQ/15 ML UDCUP PER TUBE PRN ×2 (02:25→04:37)
[2020-07-17] MEDS: methylPREDNISolone SOD SUC 40 MG/1 ML VIAL IV SCH ×2 (02:25→14:35)
[2020-07-17 04:23] LABS: ABG Base Excess 9.2 MMOL/L (-2.5-2.5); ABG HCO3 33.9 MMOL/L (20-26); ABG Oxygen Saturation 97.4 % (95-100); ABG PCO2 47.9 MM HG (35-48); ABG PH 7.468 (7.35-7.45); ABG PO2 105.5 MM HG (80-95); ABG TCO2 35.4 MMOL/L (23-27); Allen Test Positive
[2020-07-17 04:26] LABS: Basophils % 0.1 % (0.0-0.8); Hematocrit 30.5 VOL% (42.0-52.0); Hemoglobin 9.4 GM/DL (14.0-18.0); Immature Granulocytes % 0.8 %; Immature Granulocytes Absolute 0.14 #; Lymphocytes # 0.2 10*3/uL (1.4-4.0); Mean Corpuscular HGB Conc 30.8 GM/DL (32-36); Mean Corpuscular Volume 84.3 FL (87-102); Mean Platelet Volume 10.7 FL (9.6-12.0); Monocytes % 8.5 % (1.7-12.7); Neutrophils % 89.6 % (38.7-73.9); Platelet Count 304 T/CUMM (130-400); Red Blood Count 3.62 MC/CUMM (3.8-5.5); Red Cell Distribution Width 15.9 % (9.3-17.3); White Blood Count 16.7 T/CUMM (4-12)
[2020-07-17] MEDS: MEROPENEM 500 MG in SODIUM CHLORIDE 0.9% 100 ML IV SCH ×4 (04:36→22:45)
[2020-07-17] MEDS: LORazepam 2 MG/1 ML VIAL IV PRN ×3 (04:36→22:41)
[2020-07-17 04:41] LABS: Calcium 8.6 MG/DL (8.5-10.1); Osmolality,Calculated 294.6 MOS/KG (273-304)
[2020-07-17] MEDS: METOCLOPRAMIDE 10 MG/2 ML VIAL IV SCH ×3 (07:09→17:02)
[2020-07-17] MEDS: ENOXAPARIN 80 MG/0.8 ML SYRINGE SUBCUT SCH ×2 (07:09→17:02)
[2020-07-17] MEDS: OMEPRAZOLE ODT 20 MG TABLET PEG SCH (07:09)
[2020-07-17] MEDS: POTASSIUM CHLORIDE 20 MEQ/15 ML UDCUP PEG SCH (08:04)
[2020-07-17] MEDS: AMIODARONE 200 MG TABLET PER TUBE SCH (08:05)
[2020-07-17] MEDS: busPIRone 10 MG TABLET PEG SCH ×3 (08:05→20:33)
[2020-07-17] MEDS: TACROLIMUS 0.5 MG CAPSULE PEG SCH ×2 (08:05→20:33)
[2020-07-17] MEDS: LEFLUNOMIDE 10 MG TABLET PO SCH (08:05)
[2020-07-17] MEDS: CITALOPRAM 40 MG TABLET PEG SCH (08:06)
[2020-07-17] MEDS: predniSONE 5 MG TABLET PEG SCH (08:07)
[2020-07-17] MEDS: FUROSEMIDE 40 MG/4 ML VIAL IV SCH (08:07)
[2020-07-17] MEDS: amLODIPine 5 MG TABLET PO SCH (08:07)
[2020-07-17] MEDS: ASCORBIC ACID 500 MG TABLET PEG SCH ×2 (08:07→20:32)
[2020-07-17] MEDS: FERROUS SULFATE 300 MG/5 ML UDCUP PEG SCH ×2 (08:07→20:32)
[2020-07-17] MEDS: BISACODYL 5 MG TABLET PO SCH (08:07)
[2020-07-17] MEDS: LOPERAMIDE 2 MG CAPSULE PO SCH (08:07)
[2020-07-17] MEDS ORDERED: HALOPERIDOL 5 MG/ML AMP IV PRN (09:42)
[2020-07-17 10:19] LABS: Band Neutrophils 1 % (0-10); Lymphocytes 2 % (20-55); Platelet Estimate Normal; Segmented Neutrophils 94 % (50-85); Total Cells Counted 100
[2020-07-17 10:20] LABS: Hypochromasia 2+; Polychromasia Few
[2020-07-17] MEDS: ACETAMINOPHEN 325 MG/10.15 ML UDCUP PEG PRN ×2 (11:58→20:31)
[2020-07-17] MEDS: METOPROLOL TARTRATE 50 MG TABLET PO SCH ×2 (14:35→20:33)
[2020-07-17] MEDS: ALPRAZolam 0.5 MG TABLET PO PRN (18:27)
[2020-07-17] MEDS: ATORVASTATIN 20 MG TABLET PEG SCH (20:32)
[2020-07-18] MEDS: METOCLOPRAMIDE 10 MG/2 ML VIAL IV SCH ×5 (00:50→23:59)
[2020-07-18] MEDS: ALBUTEROL/IPRATROPIUM 3 ML NEB RESP TX SCH ×4 (00:53→20:58)
[2020-07-18] MEDS: methylPREDNISolone SOD SUC 40 MG/1 ML VIAL IV SCH ×2 (04:40→14:11)
[2020-07-18 04:49] LABS: ABG Base Excess 11.4 MMOL/L (-2.5-2.5); ABG HCO3 35.1 MMOL/L (20-26); ABG Oxygen Saturation 95.6 % (95-100); ABG PCO2 42.6 MM HG (35-48); ABG PH 7.528 (7.35-7.45); ABG PO2 77.2 MM HG (80-95); ABG TCO2 32.4 MMOL/L (23-27); Allen Test Positive
[2020-07-18] MEDS: LORazepam 2 MG/1 ML VIAL IV PRN ×4 (04:50→20:26)
[2020-07-18] MEDS: MEROPENEM 500 MG in SODIUM CHLORIDE 0.9% 100 ML IV SCH ×4 (05:16→22:45)
[2020-07-18] MEDS: ENOXAPARIN 80 MG/0.8 ML SYRINGE SUBCUT SCH ×2 (05:17→19:41)
[2020-07-18 05:40] LABS: Basophils % 0.1 % (0.0-0.8); Hematocrit 30.3 VOL% (42.0-52.0); Hemoglobin 9.3 GM/DL (14.0-18.0); Immature Granulocytes % 0.9 %; Immature Granulocytes Absolute 0.17 #; Lymphocytes # 0.3 10*3/uL (1.4-4.0); Lymphocytes % 1.5 % (21.2-54.2); Mean Corpuscular HGB Conc 30.7 GM/DL (32-36); Mean Corpuscular Volume 83.5 FL (87-102); Mean Platelet Volume 10.5 FL (9.6-12.0); Monocytes % 8.1 % (1.7-12.7); Neutrophils % 89.4 % (38.7-73.9); Platelet Count 311 T/CUMM (130-400); Red Blood Count 3.63 MC/CUMM (3.8-5.5); Red Cell Distribution Width 15.9 % (9.3-17.3); White Blood Count 18.4 T/CUMM (4-12)
[2020-07-18 05:48] LABS: Calcium 8.6 MG/DL (8.5-10.1); Osmolality,Calculated 291.1 MOS/KG (273-304)
[2020-07-18] MEDS: OMEPRAZOLE ODT 20 MG TABLET PEG SCH (06:53)
[2020-07-18 07:14] LABS: Lymphocytes 2 % (20-55); Segmented Neutrophils 92 % (50-85); Total Cells Counted 100
[2020-07-18 07:15] LABS: Ovalocytes 1+; Schistocytes 1+
[2020-07-18 07:16] LABS: Hypochromasia 3+
[2020-07-18 07:17] LABS: Platelet Estimate Normal
[2020-07-18] MEDS: MORPHINE 4 MG/1 ML VIAL IV PRN ×3 (10:03→21:29)
[2020-07-18] MEDS: LEFLUNOMIDE 10 MG TABLET PO SCH (10:15)
[2020-07-18] MEDS: busPIRone 10 MG TABLET PEG SCH ×3 (10:19→22:44)
[2020-07-18] MEDS: METOPROLOL TARTRATE 50 MG TABLET PO SCH ×2 (10:20→22:45)
[2020-07-18] MEDS: CITALOPRAM 40 MG TABLET PEG SCH (10:20)
[2020-07-18] MEDS: predniSONE 5 MG TABLET PEG SCH (10:20)
[2020-07-18] MEDS: LOPERAMIDE 2 MG CAPSULE PO SCH (10:20)
[2020-07-18] MEDS: BISACODYL 5 MG TABLET PO SCH (10:20)
[2020-07-18] MEDS: AMIODARONE 200 MG TABLET PER TUBE SCH (10:20)
[2020-07-18] MEDS: FERROUS SULFATE 300 MG/5 ML UDCUP PEG SCH ×2 (10:20→22:44)
[2020-07-18] MEDS: POTASSIUM CHLORIDE 20 MEQ/15 ML UDCUP PEG SCH (10:20)
[2020-07-18] MEDS: TACROLIMUS 0.5 MG CAPSULE PEG SCH ×2 (10:21→22:45)
[2020-07-18] MEDS: ASCORBIC ACID 500 MG TABLET PEG SCH ×2 (10:21→22:45)
[2020-07-18] MEDS: HALOPERIDOL 5 MG/ML AMP IV PRN ×2 (12:36→22:35)
[2020-07-18] MEDS: HYDROmorphone 2 MG/1 ML VIAL IV PRN ×2 (12:37→22:34)
[2020-07-18] MEDS: ATORVASTATIN 20 MG TABLET PEG SCH (22:45)
[2020-07-19] MEDS: LORazepam 2 MG/1 ML VIAL IV PRN (01:03)
[2020-07-19] MEDS: methylPREDNISolone SOD SUC 40 MG/1 ML VIAL IV SCH (02:53)
[2020-07-19] MEDS: ALBUTEROL/IPRATROPIUM 3 ML NEB RESP TX SCH ×2 (03:03→07:44)
[2020-07-19] MEDS: MORPHINE 4 MG/1 ML VIAL IV PRN ×2 (03:26→07:48)
[2020-07-19] MEDS: MEROPENEM 500 MG in SODIUM CHLORIDE 0.9% 100 ML IV SCH ×2 (03:33→11:19)
[2020-07-19] MEDS: HYDROmorphone 2 MG/1 ML VIAL IV PRN ×2 (04:55→09:55)
[2020-07-19] MEDS: HALOPERIDOL 5 MG/ML AMP IV PRN ×2 (04:56→09:55)
[2020-07-19] MEDS: ENOXAPARIN 80 MG/0.8 ML SYRINGE SUBCUT SCH (05:14)
[2020-07-19] MEDS: METOCLOPRAMIDE 10 MG/2 ML VIAL IV SCH ×2 (05:14→11:40)
[2020-07-19 06:07] LABS: Basophils % 0.1 % (0.0-0.8); Eosinophils % 0.1 % (0.00-10.9); Hematocrit 34.4 VOL% (42.0-52.0); Hemoglobin 10.3 GM/DL (14.0-18.0); Immature Granulocytes % 0.6 %; Immature Granulocytes Absolute 0.12 #; Lymphocytes # 0.3 10*3/uL (1.4-4.0); Lymphocytes % 1.5 % (21.2-54.2); Mean Corpuscular HGB Conc 29.9 GM/DL (32-36); Mean Corpuscular Volume 86.4 FL (87-102); Mean Platelet Volume 10.6 FL (9.6-12.0); Monocytes % 7.3 % (1.7-12.7); Neutrophils % 90.4 % (38.7-73.9); Platelet Count 303 T/CUMM (130-400); Red Blood Count 3.98 MC/CUMM (3.8-5.5); White Blood Count 19.2 T/CUMM (4-12)
[2020-07-19 06:34] LABS: Calcium 8.6 MG/DL (8.5-10.1); Osmolality,Calculated 293.6 MOS/KG (273-304)
[2020-07-19] MEDS: OMEPRAZOLE ODT 20 MG TABLET PEG SCH (06:41)
[2020-07-19 06:59] LABS: Anisocytosis 1+; Eosinophils 1 % (0-10); Hypochromasia 2+; Lymphocytes 1 % (20-55); Microcytosis 1+; Segmented Neutrophils 91 % (50-85); Total Cells Counted 100
[2020-07-19 07:00] LABS: Acanthocytes Few; Elliptocytes 1+
[2020-07-19 07:01] LABS: Platelet Estimate Normal
[2020-07-19] MEDS ORDERED: LORazepam 2 MG/1 ML VIAL IV PRN (08:02)
[2020-07-19] MEDS ORDERED: MORPHINE 4 MG/1 ML VIAL IV PRN ×3 (08:02→13:30)
[2020-07-19] MEDS: busPIRone 10 MG TABLET PEG SCH (11:16)
[2020-07-19] MEDS: CITALOPRAM 40 MG TABLET PEG SCH (11:16)
[2020-07-19] MEDS: LEFLUNOMIDE 10 MG TABLET PO SCH (11:16)
[2020-07-19] MEDS: AMIODARONE 200 MG TABLET PER TUBE SCH (11:16)
[2020-07-19] MEDS: BISACODYL 5 MG TABLET PO SCH (11:17)
[2020-07-19] MEDS: FERROUS SULFATE 300 MG/5 ML UDCUP PEG SCH (11:18)
[2020-07-19] MEDS: LOPERAMIDE 2 MG CAPSULE PO SCH (11:18)
[2020-07-19] MEDS: METOPROLOL TARTRATE 50 MG TABLET PO SCH (11:18)
[2020-07-19] MEDS: POTASSIUM CHLORIDE 20 MEQ/15 ML UDCUP PEG SCH (11:18)
[2020-07-19] MEDS: TACROLIMUS 0.5 MG CAPSULE PEG SCH (11:19)
[2020-07-19] MEDS: predniSONE 5 MG TABLET PEG SCH (11:19)
[2020-07-19] MEDS: ASCORBIC ACID 500 MG TABLET PEG SCH (11:19)
[2020-07-19 11:35] VITALS: BP 108/58
[2020-07-19] MEDS ORDERED: LORAZEPAM IV SCH (12:00)
[2020-07-19] MEDS: LORazepam 2 MG/1 ML VIAL IV SCH ×2 (12:45→14:51)
[2020-07-19] MEDS ORDERED: ALBUTEROL/IPRATROPIUM 3 ML NEB RESP TX PRN (12:58)
== END 2020-07-19 14:27 | disposition hospice, inpatient (51) | DRG 207 ==
LOC: N.5E 12:50 → SUATTDRO 12:50 → N.ICU 07-11 07:43 → N.3E 07-17 16:14
PROVIDERS: ADMIT Internal Medicine; ATTEND Internal Medicine

== ENCOUNTER 2020-07-19 14:28 | Inpatient (IN) ==
[2020-07-19] MEDS ORDERED: MORPHINE 10 MG/1 ML VIAL IV PRN (15:20)
[2020-07-19] MEDS ORDERED: ALBUTEROL 2.5 MG/3 ML NEB RESP TX PRN (15:29)
[2020-07-19] MEDS: LORazepam 2 MG/1 ML VIAL IV PRN ×5 (15:54→23:31)
[2020-07-20] MEDS: LORazepam 2 MG/1 ML VIAL IV PRN ×3 (03:54→20:51)
[2020-07-20] MEDS: MORPHINE 4 MG/1 ML VIAL IV PRN ×2 (09:15→20:54)
[2020-07-21 05:00] VITALS: BP 91/43
== END 2020-07-21 01:00 | disposition expired | DRG 951 ==
LOC: N.3E 14:28 → N.4E 14:47
PROVIDERS: ADMIT Internal Medicine; ATTEND Internal Medicine